=== PATIENT | female | born 1975 | race Caucasian/White ===

== ENCOUNTER 2019-08-13 12:21 | Emergency (ER) | payer MEDICAID ==
[~2019-08-13] VITALS: Ht 172.7 cm; Wt 64.4 kg
--- NOTE | 2019-08-13 12:32 | NUR ---
ED Nurse Note: pt walked in to ed for c/o burning semsation with redness to left eye since last night.
[2019-08-13 12:35] VITALS: BP 120/86
--- NOTE | 2019-08-13 12:57 | Emergency Room Report ---
History of Present Illness General Chief Complaint: Eye Problems Source: Patient Present Illness HPI 44-year-old female presents to the emergency department complaining of 8 out of 10 severity scratching/dry sensation in the left eye with erythema and discharge. Patient also reports some increased lacrimation. Patient reports her symptoms have been progressive x2 days. She reports some mild photophobia. She denies contact lens use and states that typically she wears prescription strength glasses however she lost her glasses. She denies history of allergies , itching or sneezing. She denies loss of vision, decreased vision, blurry vision floaters. No other aggravating or relieving factors at this time. Pt. reports she is now starting to notice erythema appearing in the right eye as well. Allergies: Coded Allergies: No Known Allergies (Unverified , 08/13/19) COVID-19 Screening Contact w/high risk pt: No Recent Travel to affected area: No Experienced COVID-19 symptoms?: No Patient History Past Medical History: none Past Surgical History: none Now: No Reviewed Nursing Documentation: PMH: Agreed; PSxH: Agreed Nursing Documentation-PMH Past Medical History: No History, Except For Review of Systems All Other Systems: negative except mentioned in HPI Physical Exam Vital Signs Date Time Temp Pulse Resp B/P (MAP) Pulse Ox O2 Delivery O2 Flow Rate FiO2 08/13/19 12:27 98.4 96 17 125/87 (100) 97 Room Air Sp02 EP Interpretation: reviewed, normal General Appearance: no apparent distress, alert, GCS 15, non-toxic Head: normocephalic, atraumatic Eyes: bilateral eye normal inspection, bilateral eye PERRL, bilateral eye visual acuity - Left is 20/50, Right is 20/40, and both is 20/40, bilateral eye other - left eye has conjunctival injection, no mid-fixed dilated pupil. no increased uptake with fluoroscene stain. mild conjunctival injection in the medial aspect of the right eye. Notable d/c in the left eye. ENT: hearing grossly normal, normal voice Neck: full range of motion Respiratory: lungs clear, normal breath sounds, speaking full sentences Cardiovascular #1: regular rate, rhythm Musculoskeletal: normal range of motion, gait/station normal, non-tender Neurologic: alert, motor strength/tone normal, oriented x3, sensory intact, responsive, speech normal Psychiatric: judgement/insight normal Skin: normal color, normal inspection Medical Decision Making PA Attestation Dr. Melton is my supervising Physician whom patient management has been discussed with. Diagnostic Impression: Primary Impression: Bacterial conjunctivitis of left eye ER Course 44-year-old female presents to the emergency department complaining of 8 out of 10 severity scratching/dry sensation in the left eye with erythema and discharge. Patient also reports some increased lacrimation. Patient reports her symptoms have been progressive x2 days. She reports some mild photophobia. She denies contact lens use and states that typically she wears prescription strength glasses however she lost her glasses. She denies history of allergies , itching or sneezing. She denies loss of vision, decreased vision, blurry vision floaters. No other aggravating or relieving factors at this time. Pt. reports she is now starting to notice erythema appearing in the right eye as well. Ddx considered but are not limited to: corneal abrasion, acute glaucoma, globe rupture, FB, Corneal Ulcer, conjunctivitis. Iridis, orbital cellulitis,keratitis , sinusitis Vital signs: are WNL, pt. is afebrile H&PE are most consistent with: bacterial conjunctivitis ORDERS: none at this time. ED INTERVENTIONS: none at this time. DISCHARGE: At this time pt. is stable for d/c to home. Will provide printed patient care instructions, and any necessary prescriptions. Care plan and follow up instructions have been discussed with the patient prior to discharge. Last Vital Signs Date Time Temp Pulse Resp B/P (MAP) Pulse Ox O2 Delivery O2 Flow Rate FiO2 08/13/19 12:35 98.4 85 18 120/86 97 Room Air Disposition: HOME, SELF-CARE Condition: Stable Scripts Trazodone Hcl* (DESYREL*) 100 Mg Tablet 100 MG ORAL BEDTIME, #30 TAB Prov: Marleen Shannon 08/13/19 Fluvoxamine Maleate (FLUVOXAMINE MALEATE) 100 Mg Cap.er.24h 200 MG PO QHS, #60 CAP Prov: Marleen Shannon 08/13/19 Ofloxacin (OCUFLOX) 5 Ml Drops 1 DROP OP QID for 5 Days, #5 ML Prov: Marleen Shannon 08/13/19 Patient Instructions: Bacterial Conjunctivitis, [id number] Additional Instructions: Take medications as directed. Follow up with a Drilling Engineering Manager in 3 days, even if your symptoms have resolved. --Please review list of primary care clinics, if you do not already have a primary care provider Return sooner to ED if new symptoms occur, or current symptoms become worse. - Please note that this Emergency Department Report was dictated using [employer] game bird biologist technology software, occasionally this can lead to erroneous entry secondary to interpretation by the dictation equipment. Marleen Shannon Aug 13, 2019 12:57
[2019-08-13] MEDS ORDERED: Tetracaine 0.5% Opth 4ml Soln LEFT EYE ONE (13:00)
[2019-08-13] MEDS ORDERED: Fluorescein Strips LEFT EYE ONE (13:00)
[2019-08-13] MEDS ORDERED: FLUVOXAMINE MA100 M1 PO (13:17)
[2019-08-13] MEDS ORDERED: OCUFLOX5 ML OP (13:17)
[2019-08-13] MEDS ORDERED: TRAZODONE HCL100 MG ORAL (13:17)
--- NOTE | 2019-08-13 13:23 | NUR ---
ER DISCHARGE NOTE: Patient is cleared to be discharged per ERMD, pt is aox4, on room air, with stable vital signs. pt was given dc and prescription instructions, pt was able to verbalize understanding, pt id bandremoved without complications. pt is able to ambulate with steady gait. pt took all belongings.
[2019-08-13 13:24] VITALS: BP 122/82
== END 2019-08-13 13:23 | disposition home or self-care (01) ==
LOC: EMR 12:49
DX: H10.9 Unspecified conjunctivitis (principal)
CPT/HCPCS: 99283